=== PATIENT | male | born 2000 | race Caucasian/White ===

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

== ENCOUNTER 2021-05-14 19:29 | Emergency (ER) | payer OTHER ==
[~2021-05-14] VITALS: Ht 172.7 cm; Wt 72.6 kg
[~2021-05-14 19:29] MED LIST changes: +IBU600 MG PO; +MAPAP500 MG PO
== END 2021-05-14 20:30 | disposition home or self-care (01) ==
LOC: ED 19:29
DX: J06.9 Acute upper respiratory infection, unspecified (principal); Z20.822 Contact with and (suspected) exposure to COVID-19; F17.200 Nicotine dependence, unspecified, uncomplicated
CPT/HCPCS: 99284; C9803; U0003

== ENCOUNTER 2022-02-12 10:32 | Emergency (ER) | payer OTHER ==
[~2022-02-12] VITALS: Ht 172.7 cm; Wt 68.7 kg
== END 2022-02-12 11:17 | disposition home or self-care (01) ==
LOC: ED 10:32
DX: R10.13 Epigastric pain (principal); K62.5 Hemorrhage of anus and rectum; F17.210 Nicotine dependence, cigarettes, uncomplicated
CPT/HCPCS: 99283

== ENCOUNTER 2023-03-07 08:40 | Emergency (ER) | payer OTHER ==
[~2023-03-07] VITALS: Ht 172.7 cm; Wt 69.4 kg
[2023-03-07 10:37] VITALS: BP 138/80
== END 2023-03-07 10:37 | disposition home or self-care (01) ==
LOC: ED 08:40
DX: T65.891A Toxic effect of other specified substances, accidental (unintentional), initial encounter (principal); S05.91XA Unspecified injury of right eye and orbit, initial encounter; Y99.0 Civilian activity done for income or pay; F17.200 Nicotine dependence, unspecified, uncomplicated
CPT/HCPCS: 99283